=== PATIENT | male | born 1950 | race Caucasian/White ===

== ENCOUNTER 2025-03-05 13:26 | Inpatient (IN) | payer OTHER ==
[~2025-03-05] VITALS: Ht 162.6 cm; Wt 67.2 kg
[~2025-03-05 13:26] MED LIST: METF-1211 PO
[2025-03-05 16:16] VITALS: BP 135/79; PULSE 63; RESP 18; TEMP 98.5; O2SAT 96
[2025-03-05] MEDS ORDERED: DEXTROSE 50%-WATER 25 GM/50 ML SYRINGE IVP PRN (17:15)
[2025-03-05 19:11] LABS: GLUCOMETER DEV NAME(LOC) 2WR.2C; GLUCOSE,POINT OF CARE 126 MG/DL (70-110)
[2025-03-05 20:01] VITALS: BP 168/71; PULSE 71; RESP 18; TEMP 97.5; O2SAT 97
[2025-03-05] MEDS: ETHYL ALCOHOL 62% ANTISEPTIC NASAL SANITIZER 0.6 ML AMPUL NASAL SCH (20:15)
[2025-03-05] MEDS: DOCUSATE SODIUM 100 MG CAPSULE PO SCH (20:16)
[2025-03-05] MEDS: ATORVASTATIN CALCIUM 40 MG TABLET PO SCH (20:17)
[2025-03-05 20:18] VITALS: O2SAT 97
[2025-03-05] MEDS: INSULIN NPH, HUMAN ISOPHANE 100 UNITS/ML SQ SCH (20:19)
[2025-03-05] MEDS: INSULIN LISPRO 100 UNITS/ML SQ PRN (20:20)
[2025-03-06] VITALS (16 sets, daily range): BP systolic 125–208; BP diastolic 55–91; PULSE 62–78; RESP 16–18; TEMP 97.6–98.2; O2SAT 94–96
[2025-03-06] MEDS: LABETALOL HCL 100 MG TABLET PO SCH (00:13)
[2025-03-06] MEDS: SENNOSIDES 8.6 MG TABLET PO SCH (00:13)
[2025-03-06] MEDS: PANTOPRAZOLE SODIUM 40 MG DR TABLET PO SCH (06:14)
[2025-03-06 06:40] LABS: GLUCOMETER DEV NAME(LOC) 2WR.1D; GLUCOSE,POINT OF CARE 149 MG/DL (70-110)
[2025-03-06 07:05] LABS: GLUCOMETER DEV NAME(LOC) 2WR.2C; GLUCOSE,POINT OF CARE 136 MG/DL (70-110)
[2025-03-06 07:20] LABS: PLATELET COUNT (AUTO) 313 K/uL (150-450); RED BLOOD CELL COUNT(AUTO) 3.19 MIL/uL (4.50-5.90); RED CELL DISTRIBUTION WIDTH 12.8 % (11.5-14.5); WHITE BLOOD COUNT (AUTO) 7.6 K/uL (4.5-11.0)
[2025-03-06 07:35] LABS: ASPARTATE AMINOTRANSFERASE 26.0 U/L (15-37); CALCIUM, TOTAL 8.2 mg/dL (8.8-10.5); CREATININE 3.53 mg/dL (0.60-1.30); GLOMERULAR FILTR. RATE CALC 17.0 mL/min (>60); GLUCOSE,RANDOM 138.0 mg/dL (70-110); SODIUM SERUM 140.0 mmol/L (136-145); TOTAL PROTEIN, SERUM 6.1 g/dL (6.4-8.2); UREA NITROGEN, BLOOD 42.0 mg/dL (7-18)
[2025-03-06] MEDS: VITAMIN B COMPLEX/FOLIC ACID 1 TABLET PO SCH (07:59)
[2025-03-06] MEDS: CLOPIDOGREL BISULFATE 75 MG TABLET PO SCH (08:01)
[2025-03-06] MEDS: MULTIVITAMINS WITH MINERALS, THERAPEUTIC TABLET PO SCH (08:01)
[2025-03-06] MEDS: CHOLECALCIFEROL (VIT D3) 1,000 UNITS [25 MCG] TABLET PO SCH (08:01)
[2025-03-06] MEDS: ASPIRIN 81 MG CHEWABLE TABLET PO SCH (08:02)
[2025-03-06] MEDS: INSULIN NPH, HUMAN ISOPHANE 100 UNITS/ML SQ SCH (08:05)
[2025-03-06 12:51] LABS: GLUCOMETER DEV NAME(LOC) 2WR.2C; GLUCOSE,POINT OF CARE 158 MG/DL (70-110)
[2025-03-06] MEDS: LOSARTAN POTASSIUM 50 MG TABLET PO SCH (13:18)
[2025-03-06] MEDS: TAMSULOSIN HCL 0.4 MG CAPSULE PO SCH (13:28)
[2025-03-06] MEDS ORDERED: ACETAMINOPHEN 325 MG TABLET PO PRN (17:00)
[2025-03-06 17:30] LABS: GLUCOMETER DEV NAME(LOC) 2WR.1D; GLUCOSE,POINT OF CARE 145 MG/DL (70-110)
[2025-03-06] MEDS: ATORVASTATIN CALCIUM 40 MG TABLET PO SCH (22:17)
[2025-03-06] MEDS: MELATONIN 5 MG TABLET PO PRN (22:18)
[2025-03-07] VITALS (13 sets, daily range): BP systolic 109–181; BP diastolic 51–82; PULSE 58–67; RESP 18–20; TEMP 97.9–98.3; O2SAT 95–97
[2025-03-07 00:16] LABS: GLUCOMETER DEV NAME(LOC) 2WR.2C; GLUCOSE,POINT OF CARE 131 MG/DL (70-110)
[2025-03-07 06:56] LABS: GLUCOMETER DEV NAME(LOC) 2WR.2C; GLUCOSE,POINT OF CARE 59 MG/DL (70-110)
[2025-03-07 07:05] LABS: GLUCOMETER DEV NAME(LOC) 2WR.2C; GLUCOSE,POINT OF CARE 72 MG/DL (70-110)
[2025-03-07] MEDS: PANTOPRAZOLE SODIUM 40 MG DR TABLET PO SCH (08:54)
[2025-03-07] MEDS ORDERED: NIFEdipine 60 MG ER TABLET PO SCH (09:00)
[2025-03-07] MEDS: FOLIC ACID/VIT B COMPLEX AND C TABLET PO SCH (09:01)
[2025-03-07 12:36] LABS: GLUCOMETER DEV NAME(LOC) 2WR.2C; GLUCOSE,POINT OF CARE 149 MG/DL (70-110)
[2025-03-07 17:21] LABS: GLUCOMETER DEV NAME(LOC) 2WR.1D; GLUCOSE,POINT OF CARE 111 MG/DL (70-110)
[2025-03-07 23:06] LABS: GLUCOMETER DEV NAME(LOC) 2WR.1D; GLUCOSE,POINT OF CARE 170 MG/DL (70-110)
[2025-03-08] VITALS (8 sets, daily range): BP systolic 130–191; BP diastolic 62–86; PULSE 68–77; RESP 18–20; TEMP 97.5–97.8; O2SAT 95–99
[2025-03-08 07:10] LABS: GLUCOMETER DEV NAME(LOC) 2WR.2C; GLUCOSE,POINT OF CARE 167 MG/DL (70-110)
[2025-03-08] MEDS: INSULIN NPH, HUMAN ISOPHANE 100 UNITS/ML SQ SCH (08:59)
[2025-03-08] MEDS: NIFEdipine 60 MG ER TABLET PO SCH (09:10)
[2025-03-08 12:25] LABS: GLUCOMETER DEV NAME(LOC) 2WR.1D; GLUCOSE,POINT OF CARE 233 MG/DL (70-110)
[2025-03-08 18:40] LABS: GLUCOMETER DEV NAME(LOC) 2WR.1D; GLUCOSE,POINT OF CARE 218 MG/DL (70-110)
[2025-03-08 22:16] LABS: GLUCOMETER DEV NAME(LOC) 2WR.2C; GLUCOSE,POINT OF CARE 215 MG/DL (70-110)
[2025-03-09 07:23] VITALS: BP 167/68; PULSE 77; RESP 18; TEMP 97.7; O2SAT 96
[2025-03-09 07:43] VITALS: BP 158/65; PULSE 76; RESP 18; O2SAT 97
[2025-03-09 07:51] LABS: GLUCOMETER DEV NAME(LOC) 2WR.2C; GLUCOSE,POINT OF CARE 185 MG/DL (70-110)
[2025-03-09] MEDS: INSULIN NPH, HUMAN ISOPHANE 100 UNITS/ML SQ SCH (08:37)
[2025-03-09 08:48] LABS: PLATELET COUNT (AUTO) 305 K/uL (150-450); RED BLOOD CELL COUNT(AUTO) 3.27 MIL/uL (4.50-5.90); RED CELL DISTRIBUTION WIDTH 12.8 % (11.5-14.5); WHITE BLOOD COUNT (AUTO) 8.0 K/uL (4.5-11.0)
[2025-03-09 08:56] LABS: CALCIUM, TOTAL 7.9 mg/dL (8.8-10.5); CREATININE 3.58 mg/dL (0.60-1.30); GLOMERULAR FILTR. RATE CALC 17.0 mL/min (>60); GLUCOSE,RANDOM 195.0 mg/dL (70-110); SODIUM SERUM 139.0 mmol/L (136-145); UREA NITROGEN, BLOOD 43.0 mg/dL (7-18)
[2025-03-09 12:21] LABS: GLUCOMETER DEV NAME(LOC) 2WR.2C; GLUCOSE,POINT OF CARE 255 MG/DL (70-110)
[2025-03-09 16:30] VITALS: BP 149/67; PULSE 72; RESP 18; O2SAT 98
[2025-03-09 18:55] LABS: GLUCOMETER DEV NAME(LOC) 2WR.2C; GLUCOSE,POINT OF CARE 288 MG/DL (70-110)
[2025-03-09 20:00] VITALS: BP 101/53; PULSE 62; RESP 18; TEMP 97.2; O2SAT 98
[2025-03-09] MEDS: LACTULOSE 20 GM/30 ML SOLUTION UDCUP PO PRN (20:29)
[2025-03-09 22:16] VITALS: BP 115/59
[2025-03-10] VITALS (7 sets, daily range): BP systolic 101–201; BP diastolic 47–83; PULSE 60–88; RESP 17–19; TEMP 97.5–98.8; O2SAT 95–96
[2025-03-10 01:26] LABS: GLUCOMETER DEV NAME(LOC) 2WR.1D; GLUCOSE,POINT OF CARE 287 MG/DL (70-110)
[2025-03-10 06:56] LABS: GLUCOMETER DEV NAME(LOC) 2WR.2C; GLUCOSE,POINT OF CARE 220 MG/DL (70-110)
[2025-03-10] MEDS: DOCUSATE SODIUM 250 MG CAPSULE PO SCH (08:16)
[2025-03-10 12:56] LABS: GLUCOMETER DEV NAME(LOC) 2WR.2C; GLUCOSE,POINT OF CARE 226 MG/DL (70-110)
[2025-03-10 17:26] LABS: GLUCOMETER DEV NAME(LOC) 2WR.1D; GLUCOSE,POINT OF CARE 206 MG/DL (70-110)
[2025-03-10 20:21] LABS: GLUCOMETER DEV NAME(LOC) 2WR.2C; GLUCOSE,POINT OF CARE 192 MG/DL (70-110)
[2025-03-10] MEDS: SENNOSIDES 8.6 MG TABLET PO SCH (20:48)
[2025-03-11] VITALS (17 sets, daily range): BP systolic 103–209; BP diastolic 54–86; PULSE 57–75; RESP 17–18; TEMP 97.3; O2SAT 96–98
[2025-03-11] MEDS: BISACODYL 10 MG RECTAL RECTAL SUPPOSITORY PR PRN (06:07)
[2025-03-11 07:00] LABS: GLUCOMETER DEV NAME(LOC) 2WR.2C; GLUCOSE,POINT OF CARE 223 MG/DL (70-110)
[2025-03-11] MEDS: INSULIN NPH, HUMAN ISOPHANE 100 UNITS/ML SQ SCH (08:27)
[2025-03-11] MEDS: POLYETHYLENE GLYCOL 3350 17 GM PACKET PO SCH (12:13)
[2025-03-11 14:36] LABS: GLUCOMETER DEV NAME(LOC) 2WR.1D; GLUCOSE,POINT OF CARE 221 MG/DL (70-110)
[2025-03-11 16:55] LABS: GLUCOMETER DEV NAME(LOC) 2WR.2C; GLUCOSE,POINT OF CARE 175 MG/DL (70-110)
[2025-03-11 22:47] LABS: GLUCOMETER DEV NAME(LOC) 2WR.2C; GLUCOSE,POINT OF CARE 111 MG/DL (70-110)
[2025-03-11 22:47] LABS: GLUCOMETER DEV NAME(LOC) 2WR.2C; GLUCOSE,POINT OF CARE 102 MG/DL (70-110)
[2025-03-12] MEDS: DOCUSATE SODIUM/BENZOCAINE 283-20MG/5 ML MINI-ENEMA PR PRN (06:19)
[2025-03-12 07:16] LABS: GLUCOMETER DEV NAME(LOC) 2WR.2C; GLUCOSE,POINT OF CARE 120 MG/DL (70-110)
[2025-03-12 08:00] VITALS: BP 131/56; PULSE 74; RESP 19; TEMP 98.6; O2SAT 95
[2025-03-12] MEDS: INSULIN NPH, HUMAN ISOPHANE 100 UNITS/ML SQ SCH (09:11)
[2025-03-12 12:06] LABS: GLUCOMETER DEV NAME(LOC) 2WR.1D; GLUCOSE,POINT OF CARE 252 MG/DL (70-110)
[2025-03-12 16:37] VITALS: BP 153/70; PULSE 65
[2025-03-12 17:50] LABS: GLUCOMETER DEV NAME(LOC) 2WR.2C; GLUCOSE,POINT OF CARE 228 MG/DL (70-110)
[2025-03-12 20:00] VITALS: BP 149/69; PULSE 61; RESP 18; TEMP 97.5; O2SAT 100
[2025-03-12 23:01] LABS: GLUCOMETER DEV NAME(LOC) 2WR.1D; GLUCOSE,POINT OF CARE 196 MG/DL (70-110)
[2025-03-13 06:45] LABS: GLUCOMETER DEV NAME(LOC) 2WR.2C; GLUCOSE,POINT OF CARE 183 MG/DL (70-110)
[2025-03-13 08:00] VITALS: BP 173/76; PULSE 80; RESP 18; TEMP 98.4; O2SAT 98; O2SAT 99
[2025-03-13 09:17] VITALS: BP 147/75; PULSE 82; RESP 18; O2SAT 100
[2025-03-13 12:55] LABS: GLUCOMETER DEV NAME(LOC) 2WR.1D; GLUCOSE,POINT OF CARE 184 MG/DL (70-110)
[2025-03-13 15:59] VITALS: BP 132/70; PULSE 57; RESP 17; O2SAT 100
[2025-03-13 17:41] LABS: GLUCOMETER DEV NAME(LOC) 2WR.1D; GLUCOSE,POINT OF CARE 94 MG/DL (70-110)
[2025-03-13 20:08] VITALS: BP 151/70; PULSE 61; RESP 18; TEMP 97.3; O2SAT 98
[2025-03-13 22:00] VITALS: BP 155/68; PULSE 67
[2025-03-13 23:39] VITALS: BP 148/68; PULSE 66
[2025-03-14] VITALS (7 sets, daily range): BP systolic 130–172; BP diastolic 60–75; PULSE 55–80; RESP 18–19; TEMP 97.3–97.7; O2SAT 97–100
[2025-03-14 03:05] LABS: GLUCOMETER DEV NAME(LOC) 2WR.1D; GLUCOSE,POINT OF CARE 209 MG/DL (70-110)
[2025-03-14 07:00] LABS: GLUCOMETER DEV NAME(LOC) 2WR.1D; GLUCOSE,POINT OF CARE 201 MG/DL (70-110)
[2025-03-14 13:21] LABS: GLUCOMETER DEV NAME(LOC) 2WR.2C; GLUCOSE,POINT OF CARE 197 MG/DL (70-110)
[2025-03-14 17:20] LABS: GLUCOMETER DEV NAME(LOC) 2WR.2C; GLUCOSE,POINT OF CARE 79 MG/DL (70-110)
[2025-03-15 00:22] VITALS: BP 151/67; PULSE 68
[2025-03-15 03:01] LABS: GLUCOMETER DEV NAME(LOC) 2WR.2C; GLUCOSE,POINT OF CARE 96 MG/DL (70-110)
[2025-03-15 08:00] VITALS: BP 167/65; PULSE 78; RESP 17; TEMP 97.9; O2SAT 98
[2025-03-15 08:45] LABS: GLUCOMETER DEV NAME(LOC) 2WR.2C; GLUCOSE,POINT OF CARE 140 MG/DL (70-110)
[2025-03-15 10:12] VITALS: BP 156/65; PULSE 65; RESP 18; O2SAT 99
[2025-03-15 12:25] LABS: GLUCOMETER DEV NAME(LOC) 2WR.2C; GLUCOSE,POINT OF CARE 325 MG/DL (70-110)
[2025-03-15 16:26] VITALS: BP 138/65; PULSE 59; RESP 18; O2SAT 99
[2025-03-15 17:35] LABS: GLUCOMETER DEV NAME(LOC) 2WR.1D; GLUCOSE,POINT OF CARE 136 MG/DL (70-110)
[2025-03-15 21:20] LABS: GLUCOMETER DEV NAME(LOC) 2WR.1D; GLUCOSE,POINT OF CARE 188 MG/DL (70-110)
[2025-03-15 23:40] VITALS: BP 161/6; PULSE 61; RESP 18
[2025-03-16 01:32] VITALS: O2SAT 97
[2025-03-16] MEDS ORDERED: LABE100T51 PO (03:46)
[2025-03-16] MEDS ORDERED: HYDR50TA36 PO (03:46)
[2025-03-16] MEDS ORDERED: ASPI-1450 PO (03:49)
[2025-03-16] MEDS ORDERED: CLON0.3T PO (03:55)
[2025-03-16] MEDS ORDERED: LOSA-382 PO (03:57)
[2025-03-16] MEDS ORDERED: TAMS0.4C94 PO (03:59)
[2025-03-16] MEDS ORDERED: AMLO-258 PO (04:02)
[2025-03-16] MEDS ORDERED: PANT-31 PO (04:04)
[2025-03-16] MEDS ORDERED: ATOR40TA28 PO (04:08)
[2025-03-16 07:30] LABS: GLUCOMETER DEV NAME(LOC) 2WR.1D; GLUCOSE,POINT OF CARE 216 MG/DL (70-110)
[2025-03-16 08:00] VITALS: BP 168/82; PULSE 88; RESP 18; TEMP 98.1; O2SAT 97
[2025-03-16 10:00] VITALS: BP 148/67; PULSE 68; RESP 18; O2SAT 98
[2025-03-16 13:05] LABS: GLUCOMETER DEV NAME(LOC) 2WR.1D; GLUCOSE,POINT OF CARE 234 MG/DL (70-110)
[2025-03-16 15:27] VITALS: BP 144/65; PULSE 57; RESP 18; O2SAT 98
[2025-03-16 18:10] LABS: GLUCOMETER DEV NAME(LOC) 2WR.2C; GLUCOSE,POINT OF CARE 148 MG/DL (70-110)
[2025-03-16 20:00] VITALS: BP 130/65; PULSE 66; RESP 18; TEMP 97.3; O2SAT 98
[2025-03-16 22:36] LABS: GLUCOMETER DEV NAME(LOC) 2WR.1D; GLUCOSE,POINT OF CARE 123 MG/DL (70-110)
[2025-03-17 00:20] VITALS: BP 161/69; PULSE 72
[2025-03-17 07:15] LABS: GLUCOMETER DEV NAME(LOC) 2WR.2C; GLUCOSE,POINT OF CARE 166 MG/DL (70-110)
[2025-03-17 07:50] VITALS: BP 175/77; PULSE 77; RESP 17; TEMP 98.2; O2SAT 98
[2025-03-17 08:59] VITALS: BP 142/57; PULSE 68
[2025-03-17 09:01] VITALS: O2SAT 98
[2025-03-17] MEDS ORDERED: TAMS0.4C94 PO (11:45)
[2025-03-17] MEDS ORDERED: CHOL25TA4 PO (11:45)
[2025-03-17] MEDS ORDERED: INSU100V SQ (11:45)
[2025-03-17] MEDS ORDERED: AMLO-258 PO (11:45)
[2025-03-17] MEDS ORDERED: NPH,100V SQ (11:45)
[2025-03-17] MEDS ORDERED: LABE100T51 PO (11:45)
[2025-03-17] MEDS ORDERED: PANT-31 PO (11:45)
[2025-03-17] MEDS ORDERED: [UNRECOGNIZED DRUG - OTHER] PO (11:45)
[2025-03-17] MEDS ORDERED: SENN-374 PO (11:45)
[2025-03-17] MEDS ORDERED: HYDR50TA37 PO (11:45)
[2025-03-17] MEDS ORDERED: ASPI-1450 PO (11:45)
[2025-03-17] MEDS ORDERED: LOSA-382 PO (11:45)
[2025-03-17] MEDS ORDERED: CLON0.3T PO (11:45)
[2025-03-17] MEDS ORDERED: POLY17PO62 PO (11:45)
[2025-03-17] MEDS ORDERED: DOCU-412 PO (11:45)
[2025-03-17] MEDS ORDERED: ATOR40TA71 PO (11:45)
[2025-03-17 12:31] LABS: GLUCOMETER DEV NAME(LOC) 2WR.1D; GLUCOSE,POINT OF CARE 202 MG/DL (70-110)
[2025-03-17 15:47] VITALS: BP 147/65; PULSE 61
[2025-03-17 17:05] LABS: GLUCOMETER DEV NAME(LOC) 2WR.1D; GLUCOSE,POINT OF CARE 163 MG/DL (70-110)
[2025-03-17 20:00] VITALS: BP 132/68; PULSE 60; RESP 19; TEMP 97.2; O2SAT 99
[2025-03-17 23:36] LABS: GLUCOMETER DEV NAME(LOC) 2WR.2C; GLUCOSE,POINT OF CARE 173 MG/DL (70-110)
[2025-03-18] VITALS: BP 149/69; PULSE 68; RESP 18; O2SAT 99
[2025-03-18 07:51] LABS: GLUCOMETER DEV NAME(LOC) 2WR.2C; GLUCOSE,POINT OF CARE 112 MG/DL (70-110)
[2025-03-18 08:41] VITALS: BP 171/65; PULSE 80; RESP 19; TEMP 98.8; O2SAT 98
[2025-03-18 09:40] VITALS: BP 146/58; PULSE 70
[2025-03-18 12:21] LABS: GLUCOMETER DEV NAME(LOC) 2WR.1D; GLUCOSE,POINT OF CARE 251 MG/DL (70-110)
[2025-03-18 15:54] VITALS: BP 129/68; PULSE 68
[2025-03-18 17:36] LABS: GLUCOMETER DEV NAME(LOC) 2WR.2C; GLUCOSE,POINT OF CARE 193 MG/DL (70-110)
[2025-03-18 20:00] VITALS: BP 148/70; PULSE 62; RESP 18; TEMP 97.9; O2SAT 98
[2025-03-18 21:06] LABS: GLUCOMETER DEV NAME(LOC) 2WR.1D; GLUCOSE,POINT OF CARE 91 MG/DL (70-110)
[2025-03-19] VITALS: BP 144/63; PULSE 64; RESP 18; O2SAT 99
[2025-03-19 06:56] LABS: GLUCOMETER DEV NAME(LOC) 2WR.1D; GLUCOSE,POINT OF CARE 120 MG/DL (70-110)
[2025-03-19 07:21] LABS: CALCIUM, TOTAL 8.5 mg/dL (8.8-10.5); CREATININE 3.84 mg/dL (0.60-1.30); GLOMERULAR FILTR. RATE CALC 15.0 mL/min (>60); GLUCOSE,RANDOM 116.0 mg/dL (70-110); SODIUM SERUM 139.0 mmol/L (136-145); UREA NITROGEN, BLOOD 57.0 mg/dL (7-18)
[2025-03-19 07:50] VITALS: BP 170/66; PULSE 77; RESP 18; TEMP 98.4; O2SAT 95
[2025-03-19 08:40] VITALS: BP 159/65; PULSE 68; O2SAT 95
[2025-03-19 12:45] LABS: GLUCOMETER DEV NAME(LOC) 2WR.2C; GLUCOSE,POINT OF CARE 129 MG/DL (70-110)
[2025-03-19 16:20] VITALS: BP 141/64; PULSE 64
[2025-03-19 17:40] LABS: GLUCOMETER DEV NAME(LOC) 2WR.2C; GLUCOSE,POINT OF CARE 210 MG/DL (70-110)
[2025-03-19 20:15] VITALS: BP 155/71; PULSE 67; RESP 18; TEMP 97.7; O2SAT 98
[2025-03-19 23:45] VITALS: BP 156/70; PULSE 69
[2025-03-20 06:06] LABS: GLUCOMETER DEV NAME(LOC) 2WR.2C; GLUCOSE,POINT OF CARE 174 MG/DL (70-110)
[2025-03-20 06:50] LABS: GLUCOMETER DEV NAME(LOC) 2WR.1D; GLUCOSE,POINT OF CARE 150 MG/DL (70-110)
[2025-03-20 08:00] VITALS: BP 177/75; PULSE 73; RESP 18; TEMP 98.8; O2SAT 96
[2025-03-20 09:30] VITALS: BP 137/63; PULSE 67; RESP 18
[2025-03-20 12:41] LABS: GLUCOMETER DEV NAME(LOC) 2WR.1D; GLUCOSE,POINT OF CARE 276 MG/DL (70-110)
[2025-03-20 15:17] VITALS: BP 150/69; PULSE 58; PULSE 68; RESP 18
[2025-03-20 17:20] LABS: GLUCOMETER DEV NAME(LOC) 2WR.1D; GLUCOSE,POINT OF CARE 159 MG/DL (70-110)
[2025-03-20 20:00] VITALS: BP 142/64; PULSE 66; RESP 18; TEMP 97.7; O2SAT 97
[2025-03-20 23:51] LABS: GLUCOMETER DEV NAME(LOC) 2WR.1D; GLUCOSE,POINT OF CARE 136 MG/DL (70-110)
[2025-03-21 07:56] LABS: GLUCOMETER DEV NAME(LOC) 2WR.1D; GLUCOSE,POINT OF CARE 141 MG/DL (70-110)
[2025-03-21 08:50] VITALS: BP 162/76; PULSE 83; RESP 18; TEMP 97.9; O2SAT 97
[2025-03-21 10:30] VITALS: O2SAT 97
[2025-03-21 13:25] LABS: GLUCOMETER DEV NAME(LOC) 2WR.1D; GLUCOSE,POINT OF CARE 245 MG/DL (70-110)
== END 2025-03-21 13:30 | disposition home health service (06) | DRG 57 ==
LOC: 2WR 16:22
PROVIDERS: ADMIT Physical Medicine & Rehabilitation; ATTEND Physical Medicine & Rehabilitation
DX: I69.354 Hemiplegia and hemiparesis following cerebral infarction affecting left non-dominant side (principal); N25.81 Secondary hyperparathyroidism of renal origin; N17.9 Acute kidney failure, unspecified; I16.1 Hypertensive emergency; N18.5 Chronic kidney disease, stage 5; I12.0 Hypertensive chronic kidney disease with stage 5 chronic kidney disease or end stage renal disease; R47.1 Dysarthria and anarthria; Z74.09 Other reduced mobility; R26.81 Unsteadiness on feet; R62.7 Adult failure to thrive; R41.89 Other symptoms and signs involving cognitive functions and awareness; E78.5 Hyperlipidemia, unspecified; E11.40 Type 2 diabetes mellitus with diabetic neuropathy, unspecified; E11.51 Type 2 diabetes mellitus with diabetic peripheral angiopathy without gangrene; E55.9 Vitamin D deficiency, unspecified; E11.65 Type 2 diabetes mellitus with hyperglycemia; D63.1 Anemia in chronic kidney disease; E11.22 Type 2 diabetes mellitus with diabetic chronic kidney disease; K59.00 Constipation, unspecified; R60.0 Localized edema; Z74.1 Need for assistance with personal care; Z78.9 Other specified health status; Z91.148 Patient's other noncompliance with medication regimen for other reason; Z79.82 Long term (current) use of aspirin; Z83.3 Family history of diabetes mellitus; Z87.891 Personal history of nicotine dependence; Z68.25 Body mass index [BMI] 25.0-25.9, adult
CPT/HCPCS: 74019; 80048; 80053; 82962; 85025; 87081; 92507; 92523; 97110; 97112; 97116; 97150; 97163; 97167; 97530; 97535; 99366; J1815